=== PATIENT | male | born 1985 | race Caucasian/White ===

== ENCOUNTER 2024-05-17 12:07 | Emergency (ER) | payer BC ==
[2024-05-17] MEDS: Lidocaine 1% 5 ML VIAL INJECT ONE (13:15)
[2024-05-17] MEDS: Diphtheria,Pertussis(Acell),Tetanus Vaccine 0.5 ML Syringe IM ONE (13:15)
== END 2024-05-17 13:50 | disposition home or self-care (01) ==
LOC: MW.ED 12:07
DX: S61.211A Laceration without foreign body of left index finger without damage to nail, initial encounter (principal); Z90.49 Acquired absence of other specified parts of digestive tract; F17.210 Nicotine dependence, cigarettes, uncomplicated; Z88.0 Allergy status to penicillin; Z75.8 Other problems related to medical facilities and other health care; Z23 Encounter for immunization; W26.0XXA Contact with knife, initial encounter
CPT/HCPCS: 12001; 90471; 90715; 99282-25; J3490